=== PATIENT | male | born 1955 | race Caucasian/White ===

== ENCOUNTER 2016-11-10 15:47 | Outpatient (CLI) | payer OTHER ==
[~2016-11-10] VITALS: Ht 166.4 cm; Wt 85.1 kg
[~2016-11-10 15:47] MED LIST: BENA10TA48 PO; GLIP-95 PO
[2016-11-10 16:04] VITALS: Ht 166.4 cm; Wt 85.1 kg
[2016-11-10] MEDS ORDERED: ASPI-664 PO (16:04)
[2016-11-10] MEDS ORDERED: BENA20TA48 PO (16:04)
[2016-11-10] MEDS ORDERED: AMLO-145 PO (16:04)
[2016-11-10] MEDS ORDERED: TERA5CAP3 PO (16:04)
[2016-11-10] MEDS ORDERED: METF1000 PO (16:04)
[2016-11-10 16:05] VITALS: BP 125/86; PULSE 131; RESP 18
--- NOTE | 2016-11-10 16:30 | PN ---
Date/Time of Note Date/Time of Note DATE: 11/10/16 TIME: 16:24 Outpatient Progress Note Chief Complaint Hypertension/diabetes/spinal stenosis/back pain/vitamin D deficiency/chronic pain syndrome HPI No headache or dizziness, no lightheadedness, no local focal weakness, no blood in the urine, no impaired vision, Diabetes/no polydipsia polyuria hypoglycemia, gastroparesis, no abdominal distention, no rash, Spinal stenosis/patient has spinal stenosis, and patient also had history of compression fracture, patient complaining of back pain, patient slightly better recently, Vitamin D deficiency/patient had vitamin D deficiency, patient was given supplemental vitamin D, Chronic pain syndrome patient has back pain and leg pain, has difficulty in walking, patient has been taking multiple pain medication, Review of Systems Const: No Fever, no chills, no Wt. loss, no Fatigue, normal appetite, no diaphoresis. Eyes: No pain, no discharge, no redness, no visual change, no foreign body. ENT: No pain, no bleeding, no congestion, no sore throat, no dysphagia, no discharge or rhinitis. Lymph: No adenopathy, no tender nodes, no lymphedema. Resp: No SOB, no cough, no sputum, no wheezing, no chest pain. CV: No chest pain, no palpitaions, no PHAN, no PND, no edema. GI: Normal appetite, no pain, no nausea, no vomiting, no diarrhea, no blood, no constipation. : No frequency, no urgency, no dysuria, no hematuria, no flank pain, no discharge, no bleeding. Musc: Lower back pain, no neck pain, no knee pain, no restricted ROM. Skin: No rash, no skin lesions, no erythema, no laceration, no bruising, no pruritus. Neuro: No MALONE, no dizziness, no syncope, no seizure, no focal-weakness. Patient feel generalized weakness, Endo: No polyuria, no polydypsia, no dry-skin, no temp-intolerance. Psych: No hallucinations, no depression, no anxiety, no suicidal ideation. Ext: No edema, no pain, no ulcer, mild generalized weakness. No phlebitis, Physical Exam Vital Signs Date Time Temp Pulse Resp B/P Pulse Ox O2 Delivery O2 Flow Rate FiO2 11/10/16 16:05 98.3 131 18 125/86 98 Room Air General Appearance: A 61 year-old male who appears well-developed, well- nourished, in no acute distress. HEENT: Head normocephalic, atraumatic. Pupils equal, round, reactive to light and accommodate. Sclerae are no jaundice. Nasal turbinates pink without erythema or nasal discharge. Mucous membranes pink and moist without lesions. Oropharynx clear without any exudate or discharge. NECK: Supple. Trachea midline, No thyromegaly, No cervical lymphadenopathy, No mass, No carotid bruits, No JVD, Carotid pulses 2+ bilaterally. PULMONARY: Clear to auscultaion bilaterally, No retractions, Chest expansion symmetric bilaterally, no rales, no ronchi, no dulness on percussion. CARDIAC: Normal SI and S2, Regular rate and rythm, patient has sinus tachycardia , no murmur, gallop, or rub. GASTROINTESTINAL: Abdomen is soft, non-tender, Non Rigid, No distention, Positive bowel sounds x4 quadrants, Liver normal. SKIN: Warm, dry, no rash, no bruise, no echmosis. EXTREMITIES: Bilateral lower extremities normal, no edema, no phlabitus, pulse palpable, no contracture. MUSCULOSKELETAL: Spine Normal, Non-tender, Normal range of motion, patient has back pain, no swelling, no deformity, no clubbing, or cyanosis, the patient has no edema to bilateral lower extremities, dorsalis pedis pulses palpable bilaterally. NEUROLOGIC: The patient is awake, alert, oriented, responding to yes/no questions appropriately, moving all extremities, cranial nerve intact, normal strenght, normal power, normal coordination, normal gait. Allergies Coded Allergies: No Known Allergy (Unverified , 11/13/14) PMH Hypertension/diabetes/spinal stenosis/compression fracture/back pain/vitamin D deficiency/chronic pain syndrome Social Hx No smoking no drinking at present, Family Hx Noncontributory Assessment/Plan Impression Hypertension/diabetes/spinal stenosis/compression fracture back/back pain/ vitamin D deficiency/chronic pain syndrome Plan Patient has sinus tachycardia when patient came in a heart rate was 130 came down to 110 after rest, patient advised if her heart rate persist to let us know , patient walked a far distance away, and was also lost, Patient blood pressure under control, patient also encourage to wear a belt/ brace, Patient encouraged to follow with the primary care physician, Continue passive range of motion and increase activity, and fall precaution, Medications Home Meds Reported Medications Aspirin (Low Dose Aspirin) 81 Mg Tablet.dr, 81 MG PO DAILY, #30 TAB 11/10/16 Terazosin Hcl* (Terazosin Hcl*) 5 Mg Capsule, 5 MG PO HS, CAP 11/10/16 Amlodipine Besylate* (Amlodipine Besylate*) 5 Mg Tablet, 5 MG PO DAILY, #30 TAB 11/10/16 Metformin Hcl* (Metformin Hcl*) 1,000 Mg Tablet, 1000 MG PO WITH BREAKFAST DINNE , #60 TAB 11/10/16 Benazepril Hcl* (Benazepril Hcl*) 20 Mg Tablet, 20 MG PO DAILY, #30 TAB 11/10/16 Glipizide* (Glipizide*) 10 Mg Tablet, 10 MG PO AC BREAKFAST, TAB 11/13/14 Discontinued Reported Medications Benazepril Hcl* (Benazepril Hcl*) 10 Mg Tablet, 10 MG PO DAILY, TAB 11/13/14 GERSON WRAY MD Nov 10, 2016 16:30
== END 2016-11-10 16:47 | disposition home or self-care (01) ==
LOC: DCC 15:47
PROVIDERS: ATTEND Internal Medicine
DX: I10 Essential (primary) hypertension (principal); E11.9 Type 2 diabetes mellitus without complications; Z79.84 Long term (current) use of oral hypoglycemic drugs; M48.00 Spinal stenosis, site unspecified; M54.9 Dorsalgia, unspecified; E55.9 Vitamin D deficiency, unspecified; G89.4 Chronic pain syndrome; Z87.311 Personal history of (healed) other pathological fracture

== ENCOUNTER 2016-11-26 14:47 | Outpatient (CLI) | payer OTHER ==
[~2016-11-26] VITALS: Ht 166.4 cm; Wt 85.0 kg
[~2016-11-26 14:47] MED LIST changes: +AMLO-145 PO; +ASPI-664 PO; -BENA10TA48 PO; +BENA20TA48 PO; +METF1000 PO; +TERA5CAP3 PO
[2016-11-26 14:51] VITALS: BP 116/72; PULSE 96; RESP 18; Ht 166.4 cm; Wt 85.0 kg
== END 2016-11-26 17:00 | disposition home or self-care (01) ==
LOC: DCC 14:47
PROVIDERS: ATTEND Internal Medicine
DX: E11.9 Type 2 diabetes mellitus without complications (principal); I10 Essential (primary) hypertension; G89.4 Chronic pain syndrome; M48.00 Spinal stenosis, site unspecified

== ENCOUNTER 2017-07-27 11:28 | Inpatient (IN) | END 2017-08-03 17:05 | disposition home or self-care (01) | DRG 460 ==

== ENCOUNTER 2017-11-19 13:23 | Inpatient (IN) | END 2017-11-30 19:40 | disposition home health service (06) | DRG 460 ==

== ENCOUNTER 2017-12-03 15:07 | Outpatient (CLI) | END 2017-12-03 16:05 | disposition home or self-care (01) ==

== ENCOUNTER 2017-12-17 14:57 | Outpatient (CLI) | END 2017-12-17 16:07 | disposition home or self-care (01) ==